=== PATIENT | male | born 1985 | race Caucasian/White ===

== ENCOUNTER 2021-12-18 11:02 | Emergency (ER) | payer SELFPAY ==
--- NOTE | ~2021-12-18 | XR_ITS ---
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 COMPARISON: none FINDINGS: Bone alignment is normal. No fracture. Joint spaces are normal. Soft tissues are unremarkable. No rig ht elbow joint effusion. IMPRESSION: 1. Negative right elbow radiographs. Reviewed, dictated and finalized at location A.
--- NOTE | 2021-12-18 11:14 | ED.UPPEXIN ---
HPI - Extremity Injury (Upper) General Chief Complaint: Extremity Injury, Upper Stated Complaint: Right Arm Pain Time Seen by Provider: 12/18/21 11:16 Source: patient Mode of arrival: ambulatory Limitations: no limitations History of Present Illness HPI narrative: Mr. Marks is a 36-year-old male patient presenting to the clinic today with complaints of right forearm pain that occurred possibly 1 to 2 days ago. He reports that he was working out in a truck lifting heavy items at work and ended up twisting his right forearm and developed some pain. Has a lump to the dorsal forearm and this is the point of tenderness. History of fracturing this same area before when he was 12 years old. He is concerned that it may be refractured and would like to have x-ray completed. Related Data Allergies Allergy/AdvReac Type Severity Reaction Status Date / Time No Known Allergies Allergy Unverified 02/11/15 14:30 Review of Systems Review of Systems: Pertinent positives per HPI. Patient denies any fever, chills, rash, headache, visual changes, dizziness, cough, runny nose, sore throat, shortness of breath, chest pain, palpitations, nausea, vomiting, diarrhea, constipation, abdominal pain, or any urinary issues. PMFSH Comments At the time of my signature, I reviewed and agree with the nursing past medical, surgical, social, and family history. There is no relevant family history pertinent to the patient complaint. Exam Narrative: General: Well-developed, well nourished, in no apparent distress Head: Normocephalic, atraumatic. Cardio: Regular rate and rhythm, s1 and s2 normal, no murmur appreciated. Resp: Clear to auscultation bilaterally, no rhonchi, rales, wheezing or rubs. Musculoskeletal: No deformity, tender to palpation over the right distal dorsal forearm, small golf ball sized knot to the right dorsal distal forearm that is tender to palpation, grossly normal range of motion, muscle strength strong and equal, peripheral pulse strong, no edema, no cyanosis, normal gait and station Course Course Emergency Course: Portions of this record may have been created with voice recognition software. Level of Care: Express Care Visit Vital Signs Vital signs: Vital signs reviewed MDM - Extremity Injury (Upper) MDM Narrative Medical decision making narrative: At the time of visit patient is resting comfortably on the exam table. Has a small knotted area to the right dorsal distal forearm that is painful to palpation. Patient requesting x-ray completed. X-ray was negative for any fracture or malalignment I suspect a possibility of a soft tissue injury. This was discussed with the patient and supportive measures were reviewed and patient voiced understanding of discharge instructions Discharge Plan Discharge Clinical Impression: Pain in right forearm Soft tissue injury of forearm Qualifiers: Encounter type: initial encounter Laterality: right Qualified Code(s): S59.911A - Unspecified injury of right forearm, initial encounter Patient Disposition: Home, Self-Care Condition: Stable Instructions: Arm Pain (ED) Additional Instructions: X-rays negative for any fracture or malalignment of the right forearm Tylenol/ibuprofen as needed for pain Rest, ice, and elevate Wear Yaw wrap as needed Follow-up with your PCP in 3 to 5 days if symptoms persist or sooner if they worsen Follow-up/Referrals: PHYSICIAN,DIRECTOR DATA MANAGEMENT [Primary Care Provider] - Time of Disposition: 11:34 Quality NIHSS Nursing Documentation ED NIHSS nursing documentation: reviewed/agree
[2021-12-18 11:15] VITALS: BP 124/83; PULSE 57; RESP 16; TEMP 36.2; O2SAT 100
== END 2021-12-18 11:37 | disposition home or self-care (01) ==
PROVIDERS: Emergency Provider Nurse Practitioner Family
DX: S59.911A Unspecified injury of right forearm, initial encounter (principal); X50.9XXA Other and unspecified overexertion or strenuous movements or postures, initial encounter
CPT/HCPCS: 73090; 99213; G0463

== ENCOUNTER 2023-03-10 23:52 | Emergency (ER) | payer SELFPAY ==
[2023-03-10 23:55] VITALS: BP 135/72; PULSE 57; RESP 14; TEMP 37.4; O2SAT 98
--- NOTE | 2023-03-11 00:54 | ED.DENTAL ---
HPI - Dental/Oral General Chief complaint: Dental/Oral <Lisa Monzon PA-C - Last Filed: 03/11/23 04:20> Stated complaint: R Lower Jaw pain <ROBERT James Last Filed: 03/11/23 04:20> Time Seen by Provider: 03/11/23 00:49 <ROBERT James Last Filed: 03/11/23 04:20> History of Present Illness HPI Narrative: 37-year-old male reports for evaluation of right lower molar pain x3 days. States the pain is sharp and at times causes him a headache. He denies throat swelling, fever, nausea or vomiting, difficulty breathing. He does not have a dentist. <ROBERT James Last Filed: 03/11/23 04:20> Related Data Allergies/adverse reactions: Allergies Allergy/AdvReac Type Severity Reaction Status Date / Time No Known Allergies Allergy Verified 03/10/23 23:55 <ROBERT James Last Filed: 03/11/23 04:20> Review of Systems Review of Systems: CONSTITUTIONAL: Denies fever, chills EYES: Denies visual changes, redness, or discharge. ENT: See HPI CARDIOVASCULAR: Denies chest pain, palpitations, or edema. RESPIRATORY: Denies cough or dyspnea. GASTROINTESTINAL: Denies abdominal pain, nausea, vomiting, or diarrhea. GENITOURINARY: Denies dysuria or hematuria. SKIN: Denies rash or itching. MUSCULOSKELETAL: Denies back pain, joint pain, or myalgia. NEUROLOGIC: Denies headache, numbness, dizziness, or weakness. PSYCHIATRIC: Denies anxiety or depression. <ROBERT James Last Filed: 03/11/23 04:20> Exam Narrative: GENERAL: Well-appearing, in no acute distress. Patient resting comfortably in exam bed. He is pleasant and conversational. HEAD: Normocephalic EYES: PERRLA ENT: Nares clear. Mucous membranes moist. Oropharynx without tonsillar hypertrophy exudate or other lesions. Multiple caries throughout. Right lower molar with edema and tenderness to the surrounding gingiva, no fluctuance or periapical abscess. No facial swelling or cellulitis. No submandibular edema, floor of mouth is soft without crepitus. He is tolerating his secretions. No trismus. NECK: Supple. CHEST: No respiratory distress. Clear to auscultation, no adventitious breath sounds. HEART: Regular rate and rhythm. No murmur heard. Normal peripheral pulses. EXTREMITIES: Normal range of motion. No edema. SKIN: Warm, dry, no rash. NEURO: No focal deficits. Alert and oriented x3. PSYCH: Normal mood and affect. <Lisa Monzon PA-C - Last Filed: 03/11/23 04:20> Course REPORTS ANALYST/PA Physician Supervision This is a was performed by both a physician and an APC. I performed all aspects of the MDM as documented w/ the following additions: 37-year-old male presenting with dental pain. Patient's teeth are all essentially rotted below the gumline. Dental block was performed the patient was instructed follow up with a dentist. [place] components of procedures performed under my direct supervision. All questions answered. Patient in agreement w/ disposition. <Caden Edwards MD - Last Filed: 03/17/23 19:20> Vital Signs Vital signs: Vital Signs Temperature 99.3 F 03/10/23 23:55 Pulse Rate 57 L 03/10/23 23:55 Respiratory Rate 14 03/10/23 23:55 Blood Pressure 135/72 03/10/23 23:55 Pulse Oximetry 98 03/10/23 23:55 Oxygen Delivery Room Air 03/10/23 23:55 Temperature 98.9 F 03/11/23 02:48 Pulse Rate 68 03/11/23 02:48 Respiratory Rate 16 03/11/23 02:48 Blood Pressure 120/86 03/11/23 02:48 Pulse Oximetry 98 03/11/23 02:48 Oxygen Delivery Room Air 03/10/23 23:55 <Lsia Monzon PA-C - Last Filed: 03/11/23 04:20> Vital Signs Temperature 99.3 F 03/10/23 23:55 Pulse Rate 57 L 03/10/23 23:55 Respiratory Rate 14 03/10/23 23:55 Blood Pressure 135/72 03/10/23 23:55 Pulse Oximetry 98 03/10/23 23:55 Oxygen Delivery Room Air 03/10/23 23:55 Temperature 98.9 F 03/11/23 02:48 Pulse Rate 68 03/11/23 02:48 R
[2023-03-11] MEDS: HYDROcodone/acetaminophen (*CRX) 5-325 MG TABLET 1 TAB PO (01:23)
[2023-03-11] MEDS: AMOXICILLIN/CLAVULANATE K 875-125 MG TAB 1 TABLET PO (01:24)
[2023-03-11] MEDS: BUPivacaine HCL 0.25% PF 30 ML VIAL INFILTRATE (02:08)
--- NOTE | 2023-03-11 02:08 | PC.NURSE ---
erp at bedside to inject bupivican
[2023-03-11 02:48] VITALS: BP 120/86; PULSE 68; RESP 16; TEMP 37.2; O2SAT 98
== END 2023-03-11 02:49 | disposition home or self-care (01) ==
PROVIDERS: Emergency Provider Physician Assistant
DX: K02.9 Dental caries, unspecified (principal)
CPT/HCPCS: 64999; 99283; A9270